=== PATIENT | female | born 1980 | race Caucasian/White ===

== ENCOUNTER 2020-06-05 04:08 | Emergency (ER) | payer MEDICAID ==
[~2020-06-05] VITALS: Ht 182.9 cm; Wt 68.0 kg
[~2020-06-05 04:08] MED LIST: CIPR-173 PO
[2020-06-05 06:52] VITALS: BP 141/54
[2020-06-05] MEDS ORDERED: LIDOCAINE VISCOUS 2% 15ML UD PO ONE (07:00)
[2020-06-05] MEDS ORDERED: cefTRIAXone SOD 1,000 MG VL IM ONE (07:00)
== END 2020-06-05 07:39 | disposition home or self-care (01) ==
LOC: ER 04:10
DX: S00.5 Superficial injury of lip and oral cavity (principal); L08.9 Local infection of the skin and subcutaneous tissue, unspecified; F17.210 Nicotine dependence, cigarettes, uncomplicated; X58.XXXD Exposure to other specified factors, subsequent encounter
CPT/HCPCS: 96372; 99283; J0696

== ENCOUNTER 2021-10-18 20:23 | Emergency (ER) | payer MEDICAID ==
[~2021-10-18] VITALS: Ht 185.4 cm; Wt 72.6 kg
[2021-10-18 20:24] VITALS: BP 150/66
[2021-10-18] MEDS ORDERED: SULF400T11 PO (23:33)
[2021-10-18] MEDS ORDERED: CEPH-509 PO (23:33)
== END 2021-10-18 23:42 | disposition home or self-care (01) ==
LOC: ER 20:28
DX: L02.416 Cutaneous abscess of left lower limb (principal); F17.210 Nicotine dependence, cigarettes, uncomplicated; Z79.899 Other long term (current) drug therapy
CPT/HCPCS: 10060; 10061